=== PATIENT | female | born 1970 | race African-American/Black ===

== ENCOUNTER 2019-09-08 14:49 | Outpatient (CLI) | payer OTHER ==
--- NOTE | 2019-09-08 16:14 | Mammography Report ---
DIGITAL SCREENING MAMMOGRAM WITH CAD, 09/08/2019 INDICATION: Routine screening mammography. TECHNIQUE: Digital bilateral 2D mammography was obtained in the craniocaudal and mediolateral obliq ue projections. This examination was interpreted with the benefit of Computer-Aided Detection analysi s. COMPARISON: None. This is a baseline screening. FINDINGS: Breast Density: The breasts are heterogeneously dense, which may obscure small masses. A left upper outer focal asymmetry requires additional imaging. No architectural distortion or suspic ious calcifications of the left breast. There is no evidence of dominant mass, suspicious calcificati ons or architectural distortion in either breast. IMPRESSION: Left focal asymmetry requiring additional imaging. Recommend recall for left lateral and spot compression MLO and CC views and left breast ultrasound if needed. Follow up recommendation: Special View: Spot Category 0: Incomplete. Needs additional imaging evaluation and/or prior mammograms for comparison. A "normal" or negative report should not discourage follow up or biopsy of a clinically significant f inding. A written summary of these findings will be mailed to the patient. The patient will be entered into a mammography reporting system which will generate a reminder letter for the patient's next appointmen t at the appropriate interval. [employer] recommends yearly mammograms starting at age 40 and continuing as l manpreet as a woman is in good health. Breast MRI is recommended for women with an approximate 20-25% or greater lifetime risk of breast cancer, including women with a strong family history of breast or ova bessy cancer or who have been treated for Hodgkin's disease. Signer Name: Bryce Giron MD Signed: 09/08/2019 4:09 PM Workstation Name: [id number]
== END 2019-09-08 14:50 | disposition home or self-care (01) ==
LOC: SPVWC 14:49
PROVIDERS: ATTEND Obstetrics & Gynecology
DX: Z12.31 Encounter for screening mammogram for malignant neoplasm of breast (principal)
CPT/HCPCS: 77067